=== PATIENT | female | born 1960 | race African-American/Black ===

== ENCOUNTER 2021-09-19 09:24 | Emergency (ER) | payer OTHER ==
[~2021-09-19] VITALS: Ht 165.1 cm; Wt 62.0 kg
[~2021-09-19 09:24] MED LIST: ATEN100T PO; ATOR10TA PO; CLON0.1T14 PO; DILT120T2 PO; IBUP-2077 PO; LOSA50TA41 PO; ONDA4TAB5 PO; TRAM50TA3 PO
[2021-09-19 10:22] LABS: CHLORIDE 107 mEq/L (98-107)
[2021-09-19 10:30] LABS: CREATINE KINASE 78 IU/L (26-192)
[2021-09-19 12:43] VITALS: BP 147/64
== END 2021-09-19 12:44 | disposition home or self-care (01) ==
LOC: ER 09:24
DX: M79.605 Pain in left leg (principal); I10 Essential (primary) hypertension; E78.00 Pure hypercholesterolemia, unspecified; Z88.0 Allergy status to penicillin
CPT/HCPCS: 36415; 80053; 82550; 83735; 93971; 99284

== ENCOUNTER 2021-09-25 09:42 | Emergency (ER) | payer OTHER ==
[~2021-09-25] VITALS: Ht 157.5 cm; Wt 64.0 kg
[2021-09-25 09:53] VITALS: BP 157/88
[2021-09-25] MEDS ORDERED: KETOROLAC 60MG/2ML VIAL IM ONE (10:30)
[2021-09-25] MEDS ORDERED: METHOCARBAMOL 500MG TABLET PO ONE (10:30)
[2021-09-25 11:17] LABS: CLARITY URINE CLEAR (CLEAR); COLOR URINE YELLOW (YELLOW); KETONES URINE NEGATIVE (NEGATIVE); LEUKOCYTE ESTERASE URINE NEGATIVE (NEGATIVE); NITRITE URINE NEGATIVE (NEGATIVE); OCCULT BLOOD URINE NEGATIVE (NEGATIVE); PROTEIN URINE NEGATIVE (NEGATIVE); SPECIFIC GRAVITY URINE 1.009 (1.005-1.030); UROBILINOGEN URINE 0.2 E.U./dL (0.2-1.0)
[2021-09-25] MEDS ORDERED: LIDO1ADH5 TP (12:52)
[2021-09-25] MEDS ORDERED: METH-773 MT (12:52)
== END 2021-09-25 13:09 | disposition home or self-care (01) ==
LOC: ER 09:42
DX: S39.012A Strain of muscle, fascia and tendon of lower back, initial encounter (principal); I10 Essential (primary) hypertension; M51.37 Other intervertebral disc degeneration, lumbosacral region; W01.0XXA Fall on same level from slipping, tripping and stumbling without subsequent striking against object, initial encounter; Y93.89 Activity, other specified; Y92.89 Other specified places as the place of occurrence of the external cause; Z79.899 Other long term (current) drug therapy; Z88.0 Allergy status to penicillin
CPT/HCPCS: 72100; 81003; 96372; 99284; J1885

== ENCOUNTER 2024-07-19 11:17 | Emergency (ER) | payer OTHER ==
[~2024-07-19] VITALS: Ht 160 cm; Wt 62.5 kg
[~2024-07-19 11:17] MED LIST changes: +LIDO1ADH5 TP; +METH-773 MT
[2024-07-19 11:25] VITALS: O2SAT 98
[2024-07-19 11:57] LABS: BASOPHILS % 1.1 % (0.0-2.0); EOSINOPHILS % 14.9 % (0.0-5.0); HEMATOCRIT. 42.6 % (36.0-48.0); HEMOGLOBIN. 13.9 g/dL (12.0-16.0); LYMPHOCYTES % 24.2 % (20.0-50.0); MEAN CORPUSCULAR HEMOGLOBIN 26.2 pg (28.0-32.0); MEAN CORPUSCULAR HGB CONC 32.7 g/dL (31.0-37.0); MEAN CORPUSCULAR VOLUME 80.1 fL (81.0-99.0); MEAN PLATELET VOLUME 8.9 fl (7.4-10.4); MONOCYTES % 7.3 % (2.0-8.0); NEUTROPHILS % 52.5 % (40.0-76.0); PLATELET 196 x1000/uL (130-400); RED BLOOD CELL COUNT 5.32 mill/uL (4.2-5.4); RED CELL DISTRIBUTION WIDTH 14.5 % (11.6-14.6); WHITE BLOOD COUNT 8.5 x1000/uL (4.5-11.0)
[2024-07-19 12:02] LABS: CHLORIDE 108 mEq/L (98-107); POTASSIUM 3.5 mEq/L (3.5-5.1); SODIUM 143 mEq/L (136-145)
[2024-07-19 12:03] LABS: CALCIUM 9.1 mg/dL (8.7-10.4); CARBON DIOXIDE 29 mEq/L (21-32)
[2024-07-19 12:08] LABS: CREATININE 1.1 mg/dL (0.6-1.0); GLUCOSE 98 mg/dL (70-105); UREA NITROGEN BLOOD 15 mg/dL (9-23)
[2024-07-19 12:16] LABS: TROPONIN I HIGH SENSITIVITY < 4 ng/L (3.0-34)
[2024-07-19] MEDS ORDERED: GUAI600T26 MT (15:53)
[2024-07-19 16:11] VITALS: BP 192/101; PULSE 82; RESP 20; TEMP 37; O2SAT 98
== END 2024-07-19 16:12 | disposition home or self-care (01) ==
LOC: ER 11:33
DX: B34.9 Viral infection, unspecified (principal); I10 Essential (primary) hypertension; E78.00 Pure hypercholesterolemia, unspecified; Z79.899 Other long term (current) drug therapy; Z88.0 Allergy status to penicillin
CPT/HCPCS: 36415; 71045; 80048; 84484; 85025; 93005; 99285